=== PATIENT | female | born 2000 | race Caucasian/White ===

== ENCOUNTER 2018-09-28 09:02 | Emergency (ER) | payer OTHER, MEDICAID ==
[~2018-09-28] VITALS: Ht 154.9 cm; Wt 63.5 kg
[2018-09-28 09:02] VITALS: BP_SYST 118
[2018-09-28] MEDS ORDERED: IBUPROFEN 800 MG TABLET PO ONE (09:45)
[2018-09-28 11:05] VITALS: BP_SYST 110
== END 2018-09-28 11:05 | disposition home or self-care (01) ==
LOC: SED 09:02
DX: S29.012A Strain of muscle and tendon of back wall of thorax, initial encounter (principal); V43.53XA Car driver injured in collision with pick-up truck in traffic accident, initial encounter; Y93.89 Activity, other specified; Y92.410 Unspecified street and highway as the place of occurrence of the external cause; Y99.8 Other external cause status
CPT/HCPCS: 72072-TC; 81025; 99283

== ENCOUNTER 2018-12-29 14:01 | Emergency (ER) | payer MEDICAID, OTHER ==
[~2018-12-29] VITALS: Ht 154.9 cm; Wt 61.2 kg
[2018-12-29 14:13] VITALS: BP_SYST 122
--- NOTE | 2018-12-29 15:14 | NUR ---
Patient to ER bed 2 to gown for evaluation. Side rails up. Report given to Yeni GONZALEZ.
--- NOTE | 2018-12-29 15:30 | NUR ---
Patient presented to ER with bump on right elbow. Patient A&Ox4, skin pink, pain 08/12, denies N/v/D. Patient states she bumped her elbow on door 2 days ago then bump with severe pain on elbow begain to have white discharge today prompting ER visit.
--- NOTE | 2018-12-29 15:40 | NUR ---
ER Dr. Solis at bedside examining patient.
[2018-12-29 16:23] VITALS: BP_SYST 122
--- NOTE | 2018-12-29 16:23 | NUR ---
Patient given written and verbal discharge instructions and verbalizes understanding. ER MD discussed with patient the results and treatment provided. Patient in stable condition. ID arm band removed. Rx of Motrin given. Patient educated on pain management and to follow up with PMD. Pain Scale 0/10. Opportunity for questions provided and answered. Medication side effect fact sheet provided.
== END 2018-12-29 16:23 | disposition home or self-care (01) ==
LOC: SED 14:01
DX: D17.39 Benign lipomatous neoplasm of skin and subcutaneous tissue of other sites (principal)
CPT/HCPCS: 81025; 99282

== ENCOUNTER 2019-07-13 00:21 | Emergency (ER) | payer OTHER ==
[~2019-07-13] VITALS: Ht 154.9 cm; Wt 63.5 kg
[2019-07-13 00:25] VITALS: BP_SYST 141
[2019-07-13] MEDS ORDERED: NACL 0.9% 1,000 ML IV ONE (05:00)
[2019-07-13 05:13] LABS: BILIRUBIN,URINE NEGATIVE (NEGATIVE); BLOOD, URINE NEGATIVE (NEGATIVE); CLARITY/URINE CLEAR (CLEAR); COLOR,URINE YELLOW (YELLOW); GLUCOSE,URINE NEGATIVE (NEGATIVE); KETONES,URINE NEGATIVE (NEGATIVE); LEUKOCYTE ESTERASE ,URINE NEGATIVE (NEGATIVE); NITRITE, URINE NEGATIVE (NEGATIVE); PH,URINE 7.5 (5.0-8.0); PROTEIN URINE NEGATIVE (NEGATIVE); UROBILINOGEN,URINE 0.2 (0.2-1.0)
[2019-07-13 06:29] LABS: BASOPHILS # (AUTO) 0.1 K/uL (0.0-0.2); BASOPHILS % (AUTO) 0.9 % (0.0-2.0); EOSINOPHILS # (AUTO) 0.1 K/uL (0.0-0.4); EOSINOPHILS % (AUTO) 0.8 % (0.0-4.0); HEMATOCRIT 40.4 % (36-48); HEMOGLOBIN 13.6 g/dL (12.0-16.0); LYMPHOCYTES # (AUTO) 3.7 K/uL (1.0-5.5); LYMPHOCYTES % (AUTO) 32.9 % (20.5-51.5); MEAN CORPUSCULAR HEMOGLOBIN 27 pg (27-31); MEAN CORPUSCULAR HGB CONC 34 % (32-36); MEAN CORPUSCULAR VOLUME 81 fL (79.0-98.0); NEUTROPHILS # (AUTO) 6.4 K/uL (1.8-7.7); NEUTROPHILS % (AUTO) 56.4 % (40.0-70.0); PLATELET COUNT (AUTO) 367 K/uL (130-430); RED BLOOD CELL COUNT(AUTO) 5.01 MIL/uL (4.2-6.2); RED CELL DISTRIBUTION WIDTH 14.4 % (9.0-15.0); WHITE BLOOD COUNT (AUTO) 11.4 K/uL (4.8-10.8)
[2019-07-13 06:31] LABS: CALCIUM 9.1 mg/dL (8.4-11.0); CREATININE 0.72 mg/dL (0.55-1.30); POTASSIUM 3.7 mmol/L (3.5-5.1)
[2019-07-13 06:37] LABS: ALBUMIN 4.3 g/dL (3.4-4.8); TOTAL BILIRUBIN 0.4 mg/dL (0.0-1.0)
[2019-07-13 07:16] VITALS: BP_SYST 128
== END 2019-07-13 07:16 | disposition home or self-care (01) ==
LOC: SED 00:21
DX: E86.0 Dehydration (principal); R42 Dizziness and giddiness
CPT/HCPCS: 36415; 80053; 81003; 81025; 85025; 93005; 99284; J7030